=== PATIENT | female | born 1950 | race Caucasian/White ===

== ENCOUNTER 2022-10-18 21:02 | Emergency (ER) | payer OTHER ==
[~2022-10-18] VITALS: Ht 167.6 cm; Wt 72.0 kg
[2022-10-18 21:25] LABS: Basophils # (auto) 0 10 ^3/uL (0-0.2); Basophils % (auto) 0.5 % (0.0-2.0); Eosinophils # (auto) 0.3 10 ^3/uL (0-0.8); Eosinophils % (auto) 3.6 % (0.0-7.0); Hematocrit 43.7 % (36.0-46.0); Hemoglobin 14.8 g/dL (12.2-16.2); Lymphocytes # (auto) 2.3 10 ^3/uL (0.4-5.4); Lymphocytes % (auto) 33.2 % (10.0-50.0); Mean Corpuscular Hemoglobin 29.1 pg (28.0-32.0); Mean Corpuscular Hgb Conc. 33.9 g/dL (32.0-36.0); Mean Corpuscular Volume 85.8 fL (80.0-100.0); Monocytes # (auto) 0.5 10 ^3/uL (0-1.3); Monocytes % (auto) 6.5 % (0.0-12.0); Neutrophils % (auto) 56.2 % (37.0-80.0); Nucleated Red Blood Cells % 0.2 %; Red Blood Cells 5.09 10^6/uL (4.0-5.20); Red Cell Distribution Width 13.8 % (11.8-14.3)
[2022-10-18 21:42] LABS: Albumin 4.1 g/dL (3.4-5.0); BUN/Creatinine Ratio 29.5; Calcium 9.6 mg/dL (8.5-10.1); Potassium 3.8 mmol/L (3.5-5.1)
[2022-10-18 21:45] LABS: Bilirubin, Total 0.6 mg/dL (0.2-1.0); INR 1.11 (0.9-1.15); Partial Thromboplastin Time 37.7 sec (24.6-33.4); Total Protein 8.3 g/dL (6.4-8.2)
[2022-10-19] MEDS ORDERED: cloNIDine HCL 0.1 MG TAB PO ONE (01:15)
[2022-10-19] MEDS ORDERED: SODIUM CHLORIDE 0.9% 1,000 ML IV ONE (06:00)
[2022-10-19 07:23] VITALS: BP 141/87
== END 2022-10-19 07:36 | disposition home or self-care (01) ==
LOC: ER 21:02 → EDBD 21:02 → ER 10-19 07:33
DX: R07.89 Other chest pain (principal); I16.0 Hypertensive urgency; I10 Essential (primary) hypertension
CPT/HCPCS: 36415; 80053; 83880; 84484; 85025; 85379; 85610; 85730; 96360; 99283; J7030